=== PATIENT | female | born 1990 | race Two or more races ===

== ENCOUNTER 2024-08-27 11:08 | Outpatient (CLI) | payer OTHER | END 2024-08-27 11:09 | disposition home or self-care (01) | LOC: PRENATAL 11:08 | PROVIDERS: ATTEND Obstetrics & Gynecology Maternal & Fetal Medicine | DX: O36.80X0 Pregnancy with inconclusive fetal viability, not applicable or unspecified (principal); Z36.82 Encounter for antenatal screening for nuchal translucency; Z14.8 Genetic carrier of other disease; Z3A.12 12 weeks gestation of pregnancy ==

== ENCOUNTER 2024-10-22 15:22 | Outpatient (CLI) | payer OTHER | END 2024-10-22 16:31 | disposition home or self-care (01) | LOC: PRENATAL 15:22 | DX: O44.00 Complete placenta previa NOS or without hemorrhage, unspecified trimester (principal); O99.210 Obesity complicating pregnancy, unspecified trimester; O34.10 Maternal care for benign tumor of corpus uteri, unspecified trimester; Z3A.20 20 weeks gestation of pregnancy ==

== ENCOUNTER 2025-01-14 11:53 | Outpatient (CLI) | payer OTHER | END 2025-01-14 11:54 | disposition home or self-care (01) | LOC: PRENATAL 11:53 | PROVIDERS: ATTEND Obstetrics & Gynecology Maternal & Fetal Medicine | DX: O26.849 Uterine size-date discrepancy, unspecified trimester (principal); O36.8199 Decreased fetal movements, unspecified trimester, other fetus; O99.210 Obesity complicating pregnancy, unspecified trimester; O34.10 Maternal care for benign tumor of corpus uteri, unspecified trimester; Z3A.32 32 weeks gestation of pregnancy ==

== ENCOUNTER 2025-02-14 13:46 | Outpatient (CLI) | payer OTHER | END 2025-02-14 13:47 | disposition home or self-care (01) | LOC: PRENATAL 13:46 | PROVIDERS: ATTEND Obstetrics & Gynecology Maternal & Fetal Medicine | DX: O26.849 Uterine size-date discrepancy, unspecified trimester (principal); O36.8199 Decreased fetal movements, unspecified trimester, other fetus; O99.210 Obesity complicating pregnancy, unspecified trimester; O34.10 Maternal care for benign tumor of corpus uteri, unspecified trimester; Z3A.36 36 weeks gestation of pregnancy ==

== ENCOUNTER 2025-02-23 00:54 | Outpatient (CLI) | payer OTHER ==
[2025-02-22 23:57] VITALS: BP 112/73
[2025-02-23] MEDS ORDERED: PRENATABS RX T1 EACH PO (01:08)
[2025-02-23] MEDS ORDERED: RINGERS SOLUTION,LACTATED 1,000 ML IV SCH (01:15)
[2025-02-23 01:38] LABS: URINE APPEARANCE Clear; URINE BILIRRUBIN Negative (NEGATIVE); URINE BLOOD Negative; URINE COLOR Yellow; URINE GLUCOSE Negative (NEGATIVE); URINE KETONE Negative (NEGATIVE); URINE LEUKOCYTE Small; URINE NITRATE Negative; URINE PROTEIN Negative (NEGATIVE); URINE UROBILINOGEN 0.2 E.U./dl
[2025-02-23 01:40] LABS: BASO % 0.2 % (0.1-1.2); EOS # 0.06 (0.04-0.54); EOS % 0.5 % (0.7-7.0); LYMPH # 1.72 (1.18-3.74); LYMPH % 15.3 % (19.3-53.1); MEAN PLATELET VOLUME 11.20 fl (9.4-12.4); MONO # 0.83 (0.24-0.82); MONO % 7.4 % (4.7-12.5); NEUT # 8.53 (1.56-6.13); NEUT % 76.1 % (34.0-71.1); RED CELL DISTRIBUTION WIDTH 14.5 % (11.6-14.4)
[2025-02-23 01:41] LABS: URINE BACTERIA 248.4 uL (0.0-1933); URINE EPITHELIAL CELLS 11.9 uL (0.0-38.8); URINE WBC 27.2 uL (0.0-23.2)
[2025-02-23 01:44] LABS: URINE CAST 0.00 uL (0.0-1.40); URINE RBC 1.1 uL (0.0-20.8)
[2025-02-23 01:56] LABS: INR < 0.93
[2025-02-23 03:20] VITALS: BP 109/75
[2025-02-23 06:59] VITALS: BP 106/73; O2SAT 98
[2025-02-23 11:09] VITALS: BP 96/62; O2SAT 97
[2025-02-23 12:09] VITALS: BP 96/62
== END 2025-02-23 12:13 | disposition home or self-care (01) ==
LOC: OBS/DEL 00:54
PROVIDERS: ATTEND Obstetrics & Gynecology
DX: O47.1 False labor at or after 37 completed weeks of gestation (principal); Z3A.37 37 weeks gestation of pregnancy

== ENCOUNTER 2025-02-25 15:00 | Inpatient (IN) | payer OTHER ==
[~2025-02-25] VITALS: Ht 157.5 cm; Wt 85.3 kg
[~2025-02-25 15:00] MED LIST: PRENATABS RX T1 EACH PO
[2025-03-01 13:50] VITALS: BP 121/77
[2025-03-01] MEDS ORDERED: RINGERS SOLUTION,LACTATED 1,000 ML IV SCH (14:30)
[2025-03-01] MEDS ORDERED: OXYTOCIN 500 ML IV SCH (15:00)
[2025-03-01 15:23] VITALS: BP 103/57
[2025-03-01] MEDS ORDERED: MORPHINE SULFATE 4 MG/ML CARTRIDGE IV ONE (16:00)
[2025-03-01] MEDS ORDERED: MORPHINE SULFATE 4 MG/ML VIAL IV ONE (20:00)
[2025-03-01 20:33] VITALS: BP 107/54
[2025-03-01] MEDS ORDERED: CHLORHEXIDINE GLUCONATE 120 ML BOTTLE TOP ONE ×2 (20:58→22:43)
[2025-03-01] MEDS ORDERED: OXYTOCIN 20 UNITS/1000ML RL PIGGYBAG IV ONE (20:58)
[2025-03-01] MEDS ORDERED: LIDOCAINE HCL 1% 10ML VIAL ONE (20:58)
[2025-03-01] MEDS ORDERED: ERYTHROMYCIN BASE OPHT 1GM EACH TUBE OP ONE ×3 (20:58→23:00)
[2025-03-01] MEDS ORDERED: OXYTOCIN 10 UNITS/ML VIAL ONE (22:42)
[2025-03-01] MEDS ORDERED: OXYTOCIN 10 UNITS/ML VIAL IV ONE (23:00)
[2025-03-02] MEDS ORDERED: MORPHINE SULFATE 4 MG/ML VIAL IV SCH (01:00)
[2025-03-02] MEDS ORDERED: MORPHINE SULFATE 4 MG/ML VIAL IV ONE ×2 (01:30→02:00)
[2025-03-02 03:00] VITALS: BP 115/73
[2025-03-02] MEDS ORDERED: KETOROLAC TROMETHAMINE 60 MG VIAL IM ONE (05:00)
[2025-03-02 08:00] VITALS: BP 106/70
[2025-03-02] MEDS ORDERED: PNV,CALCIUM 72/IRON/FOLIC ACID 1 TAB TABLET PO SCH (08:00)
[2025-03-02 08:41] LABS: BASO % 0.2 % (0.1-1.2); EOS # 0.00 (0.04-0.54); EOS % 0.0 % (0.7-7.0); LYMPH # 1.22 (1.18-3.74); LYMPH % 6.0 % (19.3-53.1); MEAN PLATELET VOLUME 11.20 fl (9.4-12.4); MONO # 1.18 (0.24-0.82); MONO % 5.8 % (4.7-12.5); NEUT # 17.78 (1.56-6.13); NEUT % 87.5 % (34.0-71.1); RED CELL DISTRIBUTION WIDTH 14.6 % (11.6-14.4)
[2025-03-02] MEDS ORDERED: OxyCODONE HCL 5 MG TABLET (ROXICODONE) PO SCH ×2 (09:00)
[2025-03-02 19:30] VITALS: BP 121/82
[2025-03-03 00:59] VITALS: BP 108/74
[2025-03-03] MEDS ORDERED: DOCUSATE SODIUM 100MG CAP PO SCH (08:00)
[2025-03-03] MEDS ORDERED: SIMETHICONE 125 MG CAPSULE PO SCH (08:00)
[2025-03-03 08:42] VITALS: BP 102/71; O2SAT 98
[2025-03-03 19:03] VITALS: BP 109/72
[2025-03-04 08:39] VITALS: BP 128/81; O2SAT 99
== END 2025-03-04 14:54 | disposition home or self-care (01) | DRG 788 ==
LOC: LDR 03-01 14:12 → O/R 03-01 22:57 → OB/GYN 03-02 01:36
PROVIDERS: ADMIT Obstetrics & Gynecology; ATTEND Obstetrics & Gynecology
PROC: 4A1HXCZ Monitoring of Products of Conception, Cardiac Rate, External Approach (ICD-10-PCS; 2025-03-01)
PROC: 10D00Z1 Extraction of Products of Conception, Low, Open Approach (ICD-10-PCS; principal; 2025-03-02)
DX: O82 Encounter for cesarean delivery without indication (principal); O33.8 Maternal care for disproportion of other origin; Z3A.39 39 weeks gestation of pregnancy; Z37.0 Single live birth

== ENCOUNTER 2025-03-01 12:59 | Outpatient (CLI) | payer OTHER ==
[2025-03-01 11:53] VITALS: BP 121/77
[2025-03-01] MEDS ORDERED: RINGERS SOLUTION,LACTATED 1,000 ML IV SCH (13:15)
[2025-03-01 13:23] LABS: BASO % 0.1 % (0.1-1.2); EOS # 0.03 (0.04-0.54); EOS % 0.3 % (0.7-7.0); LYMPH # 1.18 (1.18-3.74); LYMPH % 12.0 % (19.3-53.1); MEAN PLATELET VOLUME 10.50 fl (9.4-12.4); MONO # 0.58 (0.24-0.82); MONO % 5.9 % (4.7-12.5); NEUT # 7.98 (1.56-6.13); NEUT % 81.1 % (34.0-71.1); RED CELL DISTRIBUTION WIDTH 14.6 % (11.6-14.4)
[2025-03-01 13:24] LABS: URINE APPEARANCE Clear; URINE BILIRRUBIN Negative (NEGATIVE); URINE BLOOD Negative; URINE COLOR Yellow; URINE GLUCOSE Negative (NEGATIVE); URINE KETONE Negative (NEGATIVE); URINE LEUKOCYTE Negative; URINE NITRATE Negative; URINE PROTEIN Negative (NEGATIVE); URINE UROBILINOGEN 0.2 E.U./dl
[2025-03-01 13:27] LABS: URINE BACTERIA 31.1 uL (0.0-1933); URINE EPITHELIAL CELLS 9.0 uL (0.0-38.8); URINE RBC 7.0 uL (0.0-20.8); URINE WBC 4.9 uL (0.0-23.2)
[2025-03-01 13:28] LABS: URINE CAST 0.00 uL (0.0-1.40)
[2025-03-01 13:50] LABS: INR < 0.93
== END 2025-03-01 14:11 | disposition still patient (30) ==
LOC: OBS/DEL 12:59
PROVIDERS: ATTEND Obstetrics & Gynecology
DX: O26.893 Other specified pregnancy related conditions, third trimester (principal)